=== PATIENT | female | born 1935 | race Two or more races ===

== ENCOUNTER 2019-02-25 09:40 | Outpatient (CLI) | payer OTHER ==
[~2019-02-25] VITALS: Ht 157.5 cm; Wt 51.7 kg
[2019-02-25] MEDS ORDERED: LIPO-FLAVONOID1 EACH PO (10:37)
== END 2019-02-25 10:15 | disposition home or self-care (01) ==
LOC: OFIC 805 09:40
DX: H93.12 Tinnitus, left ear (principal); J31.0 Chronic rhinitis

== ENCOUNTER 2024-12-07 07:27 | Outpatient (CLI) | payer OTHER ==
[~2024-12-07 07:27] MED LIST: LIPO-FLAVONOID1 EACH PO
== END 2024-12-07 07:29 | disposition home or self-care (01) ==
LOC: NUCLEAR 07:27
PROVIDERS: ATTEND Internal Medicine Cardiovascular Disease
DX: I87.2 Venous insufficiency (chronic) (peripheral) (principal)

== ENCOUNTER → 2024-12-08 07:16 | Outpatient (CLI) | payer OTHER | END | disposition home or self-care (01) | LOC: NUCLEAR 07:16 | PROVIDERS: ATTEND Internal Medicine Cardiovascular Disease | DX: I87.2 Venous insufficiency (chronic) (peripheral) (principal) ==